=== PATIENT | male | born 1960 | race Caucasian/White ===

== ENCOUNTER → 2017-10-02 | Outpatient (CLI) | payer OTHER ==
[~2017-10-02] MED LIST: NOHOMEMEDS
== END | disposition home or self-care (01) ==
LOC: CDC 12:57
DX: Z01.810 Encounter for preprocedural cardiovascular examination (principal); S83.232A Complex tear of medial meniscus, current injury, left knee, initial encounter; R00.1 Bradycardia, unspecified
CPT/HCPCS: 93000